=== PATIENT | female | born 1995 | race Hispanic/Latino ===

== ENCOUNTER 2019-02-04 14:13 | Emergency (ER) | payer OTHER, SELFPAY ==
[2019-02-04 14:25] VITALS: BP 129/74; PULSE 71; RESP 12; TEMP 36.7; O2SAT 100; BMI 20.5
--- NOTE | 2019-02-04 14:34 | DI.RAD.S_ITS ---
PROCEDURE: XR CHEST 1V INDICATIONS: chest pain TECHNIQUE: One view of the chest was acquired. COMPARISON: None. FINDINGS: Surgical changes and devices: None. Lungs and pleura: Lungs are clear. No pleural effusions or pneumothorax. Mediastinum: Mediastinal contours appear normal. Heart size is normal. Bones and chest wall: No suspicious bony lesions. Overlying soft tissues appear unremarkable. IMPRESSION: No acute disease Dictated by: Lars Valderrama M.D. on 02/04/2019 at 15:07 Approved by: Lars Valderrama M.D. on 02/04/2019 at 15:14
--- NOTE | 2019-02-04 15:03 | ED.CHESTPAIN ---
HPI - Chest Pain <JACOB Husain-BC - Last Filed: 02/04/19 18:38> General Chief Complaint: Chest Pain Stated Complaint: Chest pain trouble breathing Time Seen by Provider: 02/04/19 14:36 Source: patient Mode of arrival: ambulatory Limitations: no limitations History of Present Illness HPI narrative: The patient is a 24-year-old female nonsmoker presents with epigastric and chest pain for the past 4 days, that has been on and off. She does have slight nausea, denies any fever vomiting diarrhea abdominal pain. She nurses slight shortness of breath, states she has history of bronchitis. She denies any fevers. She denies any recent surgeries. She denies any immobility recently. She states that she tried to follow up with her PCP, and had no availability. She denies any worsening or alleviating factors of the pain. She states that the pain starts in her epigastric area and then radiates that. She has not tried anything for pain. No palpitations. Related Data Home Medications Medication Instructions Recorded Confirmed cholecalciferol (vitamin D3) 5,000 unit PO DAILY 02/04/19 02/04/19 cyanocobalamin (vitamin B-12) 1,000 mcg PO DAILY 02/04/19 02/04/19 [Vitamin B-12] levothyroxine [Synthroid] 50 mcg PO DAILY 02/04/19 02/04/19 norgestimate-ethinyl estradiol 1 tab PO DAILY 02/04/19 02/04/19 [Cwd-Fj-Pmtavezd] Previous Rx's Medication Instructions Recorded omeprazole 40 mg PO DAILY #14 cap 02/04/19 Allergies Allergy/AdvReac Type Severity Reaction Status Date / Time shrimp Allergy Verified 02/04/19 14:31 Review of Systems <JACOB Husain-BC - Last Filed: 02/04/19 18:38> Review of Systems GENERAL: Denies chills, fatigue, malaise, fever, sweats. HEENT: Denies sinus pain, ear pain, sore throat, difficulty swallowing, dizziness. RESPIRATORY: Denies dyspnea, cough, wheezing, hemoptysis, sputum. CARDIOVASCULAR: See HPI GASTROINTESTINAL: See HPI MUSCULOSKELETAL: denies weakness, joint pain, or bony pain SKIN: Denies rash, skin lesions, or other NEUROLOGIC: Denies weakness, headache, numbness, change in speech, confusion, seizures, incoordination. PSYCHIATRIC: No concerning psychosocial issues. 12 point review of systems is negative except for those stated above PFSH <Vivi CombsJACOB-BC - Last Filed: 02/04/19 18:38> Social History Smoking Status: Never smoker Social History Smoking Status: Never smoker Exam <Vivi CombsJACOB-BC - Last Filed: 02/04/19 18:38> Narrative Exam Narrative: GENERAL: This is a well-nourished, well-developed patient, no acute distress HEAD: Atraumatic. Normocephalic. No temporal or scalp tenderness. EYES: Pupils equal round and reactive. Extraocular motions intact. No scleral icterus. No injection or drainage. ENT: Nose without bleeding, purulent drainage or septal hematoma. Throat without erythema, tonsillar hypertrophy or exudate. Uvula midline. Airway patent. NECK: Trachea midline. No JVD or lymphadenopathy. Supple, nontender, no meningeal signs. CARDIOVASCULAR: Regular rate and rhythm without murmurs, gallops, or rubs. RESPIRATORY: Clear to auscultation. Breath sounds equal bilaterally. No wheezes, rales, or rhonchi. No cough. No increased respiratory effort. No accessory muscle use. GASTROINTESTINAL: Abdomen soft, diffusely tender to epigastric area, nontender otherwise, nondistended. No hepato-splenomegaly, or palpable masses. No guarding. Active bowel sounds all 4 quadrants. EXTREMITIES: No clubbing, cyanosis, or edema. No joint tenderness, effusion, or edema noted. BACK: Nontender without deformity or crepitance. No flank tenderness. NEURO: AOx3. SKIN: No rash or erythema. Initial Vital Signs Initial Vital Signs: Vital Signs Temperature 98.0 F 02/04/19 14:25 Pulse Rate 71 02/04/19 14:25 Respiratory Rate 12 02/04/19 14:25 Blood Pressure 129/74 02/04/19 14:25 Pulse Oximetry 100 02/04/19 14:25 <Dari Dao MD - Last Filed: 02/04/19 19:11> Initial Vital Signs Initial Vital Signs: Vital Signs Temperature 98.0 F 02/04/19 14:25 Pulse Rate 71 02/04/19 14:25 Respiratory Rate 12 02/04/19 14:25 Blood Pressure 129/74 02/04/19 14:25 Pulse Oximetry 100 02/04/19 14:25 Course <CAITLIN HusainBC - Last Filed: 02/04/19 18:38> Orders Ordered: ED Orders 02/04/19 14:34 XR chest 1V Stat EKG-12 Lead Stat 02/04/19 14:53 Amylase Stat Complete Blood Count AUTO DIFF Stat Comprehensive Metabolic Panel Stat D Dimer Stat Lipase Stat Partial Thromboplastin Time Stat Prothrombin Time INR Stat Troponin & CK Cardiac Panel Stat 02/04/19 15:05 RT Consult Eval and Treat Now Discontinued Medications Al Hydrox/Mg Hydrox/Simethicone 20 ml/ Lidocaine HCl 15 ml 0 ml PO NOW ONE Stop: 02/04/19 15:42 Last Admin: 02/04/19 15:59 Dose: 35 ml Pantoprazole Sodium (Protonix) 40 mg IV NOW ONE Stop: 02/04/19 15:42 Last Admin: 02/04/19 15:59 Dose: 40 mg Vital Signs - 8 hr 02/04/19 14:25 02/04/19 15:30 02/04/19 16:30 Temperature 98.0 F Pulse Rate 71 59 L 75 Respiratory Rate 12 12 16 Blood Pressure 129/74 Blood Pressure [Right Arm] 115/63 157/104 H Pulse Oximetry 100 100 100 02/04/19 17:30 Temperature Pulse Rate 62 Respiratory Rate 13 Blood Pressure Blood Pressure [Right Arm] 116/74 Pulse Oximetry 100 <Dari Dao MD - Last Filed: 02/04/19 19:11> Orders Ordered: ED Orders 02/04/19 14:34 XR chest 1V Stat EKG-12 Lead Stat 02/04/19 14:53 Amylase Stat Complete Blood Count AUTO DIFF Stat Comprehensive Metabolic Panel Stat D Dimer Stat Lipase Stat Partial Thromboplastin Time Stat Prothrombin Time INR Stat Troponin & CK Cardiac Panel Stat 02/04/19 15:05 RT Consult Eval and Treat Now Discontinued Medications Al Hydrox/Mg Hydrox/Simethicone 20 ml/ Lidocaine HCl 15 ml 0 ml PO NOW ONE Stop: 02/04/19 15:42 Last Admin: 02/04/19 15:59 Dose: 35 ml Pantoprazole Sodium (Protonix) 40 mg IV NOW ONE Stop: 02/04/19 15:42 Last Admin: 02/04/19 15:59 Dose: 40 mg Vital Signs - 8 hr 02/04/19 14:25 02/04/19 15:30 02/04/19 16:30 Temperature 98.0 F Pulse Rate 71 59 L 75 Respiratory Rate 12 12 16 Blood Pressure 129/74 Blood Pressure [Right Arm] 115/63 157/104 H Pulse Oximetry 100 100 100 02/04/19 17:30 Temperature Pulse Rate 62 Respiratory Rate 13 Blood Pressure Blood Pressure [Right Arm] 116/74 Pulse Oximetry 100 MDM - Chest Pain <JACOB Husain- - Last Filed: 02/04/19 18:38> Lab Data Result diagrams: 02/04/19 14:53 02/04/19 14:53 Lab Results 02/04/19 02/04/19 02/04/19 Range/Units 14:53 14:53 14:53 WBC 4.6 (4.5-11.0) X10^3/uL RBC 3.94 L (4.0-5.2) X10^6/uL Hgb 12.2 (12.0-16.0) g/dL Hct 36.6 (36-46) % MCV 93.0 (80-100) fL MCH 31.1 (26-34) PG MCHC 33.4 (30-36) % RDW 12.5 (11.6-14.8) % Plt Count 225 (150-400) X10^3/uL Neut % (Auto) 47.7 L (50-75) % Lymph % (Auto) 42.7 H (25-40) % [place] % (Auto) 7.5 (3-14) % Eos % (Auto) 1.1 L (2-4) % Baso % (Auto) 1.0 (0-2) % Neut # (Auto) 2200 (7874-8876) /uL Lymph # (Auto) 2000 (3715-8015) /uL [place] # (Auto) 300 (0-900) /uL Eos # (Auto) 100 (0-450) /uL Baso # (Auto) 0 (0-100) /uL PT 11.0 (10.1-12.7) SECONDS INR 1.0 (0.9-1.3) APTT 33 (26.4-36.2) SECONDS D-Dimer (<230) ng/mL Sodium 140 (137-145) mmol/L Potassium 3.8 (3.4-5.1) mmol/L Chloride 105 (98-107) mmol/L Carbon Dioxide 27 (22-32) mmol/L BUN 9 (7-17) mg/dL Creatinine 0.60 (0.52-1.04) mg/dL Estimated GFR > 60.0 (>60) mL/min BUN/Creatinine Ratio 15.0 (6-22) Glucose 88 (70-100) mg/dL Calcium 8.9 (8.4-10.2) mg/dL Total Bilirubin 0.1 L (0.2-1.3) mg/dL AST 37 H (14-36) IU/L ALT 42 (9-52) IU/L Alkaline Phosphatase 57 (38-126) U/L Total Creatine Kinase 549 H (30-135) U/L CK-MB (CK-2) 1.00 (<2.37) ng/mL CK-MB (CK-2) Rel Index 0.2 L (1.5-5.0) % Troponin I < 0.012 (0.01-0.034) ng/mL Total Protein 6.9 (6.3-8.2) g/dL Albumin 3.8 (3.5-5.0) g/dL Globulin 3.1 (1.7-4.1) g/dL Albumin/Globulin Ratio 1.2 (1.0-2.8) Amylase (30-110) U/L Lipase 98 (23-300) U/L 02/04/19 02/04/19 Range/Units 14:53 14:53 WBC (4.5-11.0) X10^3/uL RBC (4.0-5.2) X10^6/uL Hgb (12.0-16.0) g/dL Hct (36-46) % MCV (80-100) fL MCH (26-34) PG MCHC (30-36) % RDW (11.6-14.8) % Plt Count (150-400) X10^3/uL Neut % (Auto) (50-75) % Lymph % (Auto) (25-40) % [place] % (Auto) (3-14) % Eos % (Auto) (2-4) % Baso % (Auto) (0-2) % Neut # (Auto) (9805-0354) /uL Lymph # (Auto) (3266-2219) /uL [place] # (Auto) (0-900) /uL Eos # (Auto) (0-450) /uL Baso # (Auto) (0-100) /uL PT (10.1-12.7) SECONDS INR (0.9-1.3) APTT (26.4-36.2) SECONDS D-Dimer < 200 (<230) ng/mL Sodium (137-145) mmol/L Potassium (3.4-5.1) mmol/L Chloride (98-107) mmol/L Carbon Dioxide (22-32) mmol/L BUN (7-17) mg/dL Creatinine (0.52-1.04) mg/dL Estimated GFR (>60) mL/min BUN/Creatinine Ratio (6-22) Glucose (70-100) mg/dL Calcium (8.4-10.2) mg/dL Total Bilirubin (0.2-1.3) mg/dL AST (14-36) IU/L ALT (9-52) IU/L Alkaline Phosphatase (38-126) U/L Total Creatine Kinase (30-135) U/L CK-MB (CK-2) (<2.37) ng/mL CK-MB (CK-2) Rel Index (1.5-5.0) % Troponin I (0.01-0.034) ng/mL Total Protein (6.3-8.2) g/dL Albumin (3.5-5.0) g/dL Globulin (1.7-4.1) g/dL Albumin/Globulin Ratio (1.0-2.8) Amylase 102 (30-110) U/L Lipase (23-300) U/L Imaging Data Chest x-ray: Radiologist's impression: [address] [address] XRay Report Signed Patient: Kira Reyes#: [id number] : 1995Acct:[id number] Age/Sex: 24 / FDate of Service: 02/04/19 Loc: ED Accession Number: [id number] Procedure: XR chest 1V Ordering Provider: Dari Dao MD PROCEDURE: XR CHEST 1V INDICATIONS: chest pain TECHNIQUE: One view of the chest was acquired. COMPARISON: None. FINDINGS: Surgical changes and devices: None. Lungs and pleura: Lungs are clear. No pleural effusions or pneumothorax. Mediastinum: Mediastinal contours appear normal. Heart size is normal. Bones and chest wall: No suspicious bony lesions. Overlying soft tissues appear unremarkable. IMPRESSION: No acute disease Dictated by: Lars Valderrama M.D. on 02/04/2019 at 15:07 Approved by: Lars Valderrama M.D. on 02/04/2019 at 15:14 [facility] Narrative Medical decision making narrative: The patient is a 24-year-old female presents with a chief complaint of chest pain for the past several days. She has a negative troponin, negative D-dimer, overall normal lab work. She responded well to a GI cocktail and Protonix. Thus I did discuss at length with her decreasing acid in her diet, and gave her a prescription for omeprazole. I discussed at length follow up with primary care provider as well as coming back to the emergency department for any acute concerns such as passing out etc. She had no questions or concerns upon discharge. <Dari Dao MD - Last Filed: 02/04/19 19:11> Lab Data Lab Results 02/04/19 02/04/19 02/04/19 Range/Units 14:53 14:53 14:53 WBC 4.6 (4.5-11.0) X10^3/uL RBC 3.94 L (4.0-5.2) X10^6/uL Hgb 12.2 (12.0-16.0) g/dL Hct 36.6 (36-46) % MCV 93.0 (80-100) fL MCH 31.1 (26-34) PG MCHC 33.4 (30-36) % RDW 12.5 (11.6-14.8) % Plt Count 225 (150-400) X10^3/uL Neut % (Auto) 47.7 L (50-75) % Lymph % (Auto) 42.7 H (25-40) % [place] % (Auto) 7.5 (3-14) % Eos % (Auto) 1.1 L (2-4) % Baso % (Auto) 1.0 (0-2) % Neut # (Auto) 2200 (1084-5584) /uL Lymph # (Auto) 2000 (3158-3955) /uL [place] # (Auto) 300 (0-900) /uL Eos # (Auto) 100 (0-450) /uL Baso # (Auto) 0 (0-100) /uL PT 11.0 (10.1-12.7) SECONDS INR 1.0 (0.9-1.3) APTT 33 (26.4-36.2) SECONDS D-Dimer (<230) ng/mL Sodium 140 (137-145) mmol/L Potassium 3.8 (3.4-5.1) mmol/L Chloride 105 (98-107) mmol/L Carbon Dioxide 27 (22-32) mmol/L BUN 9 (7-17) mg/dL Creatinine 0.60 (0.52-1.04) mg/dL Estimated GFR > 60.0 (>60) mL/min BUN/Creatinine Ratio 15.0 (6-22) Glucose 88 (70-100) mg/dL Calcium 8.9 (8.4-10.2) mg/dL Total Bilirubin 0.1 L (0.2-1.3) mg/dL AST 37 H (14-36) IU/L ALT 42 (9-52) IU/L Alkaline Phosphatase 57 (38-126) U/L Total Creatine Kinase 549 H (30-135) U/L CK-MB (CK-2) 1.00 (<2.37) ng/mL CK-MB (CK-2) Rel Index 0.2 L (1.5-5.0) % Troponin I < 0.012 (0.01-0.034) ng/mL Total Protein 6.9 (6.3-8.2) g/dL Albumin 3.8 (3.5-5.0) g/dL Globulin 3.1 (1.7-4.1) g/dL Albumin/Globulin Ratio 1.2 (1.0-2.8) Amylase (30-110) U/L Lipase 98 (23-300) U/L 02/04/19 02/04/19 Range/Units 14:53 14:53 WBC (4.5-11.0) X10^3/uL RBC (4.0-5.2) X10^6/uL Hgb (12.0-16.0) g/dL Hct (36-46) % MCV (80-100) fL MCH (26-34) PG MCHC (30-36) % RDW (11.6-14.8) % Plt Count (150-400) X10^3/uL Neut % (Auto) (50-75) % Lymph % (Auto) (25-40) % [place] % (Auto) (3-14) % Eos % (Auto) (2-4) % Baso % (Auto) (0-2) % Neut # (Auto) (2687-6443) /uL Lymph # (Auto) (2653-5262) /uL [place] # (Auto) (0-900) /uL Eos # (Auto) (0-450) /uL Baso # (Auto) (0-100) /uL PT (10.1-12.7) SECONDS INR (0.9-1.3) APTT (26.4-36.2) SECONDS D-Dimer < 200 (<230) ng/mL Sodium (137-145) mmol/L Potassium (3.4-5.1) mmol/L Chloride (98-107) mmol/L Carbon Dioxide (22-32) mmol/L BUN (7-17) mg/dL Creatinine (0.52-1.04) mg/dL Estimated GFR (>60) mL/min BUN/Creatinine Ratio (6-22) Glucose (70-100) mg/dL Calcium (8.4-10.2) mg/dL Total Bilirubin (0.2-1.3) mg/dL AST (14-36) IU/L ALT (9-52) IU/L Alkaline Phosphatase (38-126) U/L Total Creatine Kinase (30-135) U/L CK-MB (CK-2) (<2.37) ng/mL CK-MB (CK-2) Rel Index (1.5-5.0) % Troponin I (0.01-0.034) ng/mL Total Protein (6.3-8.2) g/dL Albumin (3.5-5.0) g/dL Globulin (1.7-4.1) g/dL Albumin/Globulin Ratio (1.0-2.8) Amylase 102 (30-110) U/L Lipase (23-300) U/L Discharge Plan Departure Patient Disposition: Home Clinical Impression: Atypical chest pain Gastroesophageal reflux disease Qualifiers: Esophagitis presence: esophagitis presence not specified Qualified Code(s): K21.9 - Gastro-esophageal reflux disease without esophagitis Discharge Date/Time: 02/04/19 17:57 Interventions: ED Discharge Assessment Last Done: 02/04/19 17:57 Instructions: DI for Gastroesophageal Reflux Disease (GERD), DI for Atypical Chest Pain, GERD Diet Activity Restrictions/Additional Instructions: Your x-ray and lab work came back well today. However you responded well to medications to reduce acid in her stomach. Please follow the dietary changes that we discussed. I have given you a prescription for omeprazole. Please follow up with primary care Provider in the next few days. Please come back to the emergency department for any acute concerns such as passing out or confusion. Prescriptions: New omeprazole 40 mg capsule,delayed release(DR/EC) 40 mg PO DAILY Qty: 14 RF: 0 No Action cyanocobalamin (vitamin B-12) [Vitamin B-12] 1,000 mcg tablet 1,000 mcg PO DAILY RF: 0 levothyroxine [Synthroid] 50 mcg tablet 50 mcg PO DAILY RF: 0 cholecalciferol (vitamin D3) 5,000 unit capsule 5,000 unit PO DAILY RF: 0 norgestimate-ethinyl estradiol [[id number]] 0.18/0.215/0.25 mg-25 mcg tablet 1 tab PO DAILY RF: 0
[2019-02-04 15:06] LABS: Add Manual Diff / Slide Review NO; Basophils Absolute Auto 0 /uL (0-100); Eosinophils Absolute Auto 100 /uL (0-450); Eosinophils Percent Auto 1.1 % (2-4); Hematocrit 36.6 % (36-46); Hemoglobin 12.2 g/dL (12.0-16.0); Lymphocytes Absolute Auto 2000 /uL (1100-4500); Lymphocytes Percent Auto 42.7 % (25-40); Mean Corpuscular HGB Conc 33.4 % (30-36); Mean Corpuscular Hemoglobin 31.1 PG (26-34); Monocytes Absolute Auto 300 /uL (0-900); Monocytes Percent Auto 7.5 % (3-14); Neutrophils Absolute Auto 2200 /uL (1500-7000); Neutrophils Percent Auto 47.7 % (50-75); Platelet Count 225 X10^3/uL (150-400); Red Blood Cell Count 3.94 X10^6/uL (4.0-5.2); Red Cell Distribution Width 12.5 % (11.6-14.8); White Blood Cell Count 4.6 X10^3/uL (4.5-11.0)
[2019-02-04 15:21] LABS: PTT Partial Thromboplastin Tim 33 SECONDS (26.4-36.2)
[2019-02-04 15:23] LABS: Alanine Aminotransferase 42 IU/L (9-52); Albumin 3.8 g/dL (3.5-5.0); Albumin Globulin Ratio 1.2 (1.0-2.8); Alkaline Phosphatase 57 U/L (38-126); Amylase 102 U/L (30-110); Aspartate Aminotransferase 37 IU/L (14-36); Bilirubin Total 0.1 mg/dL (0.2-1.3); Blood Urea Nitrogen 9 mg/dL (7-17); Calcium 8.9 mg/dL (8.4-10.2); Carbon Dioxide 27 mmol/L (22-32); Chloride 105 mmol/L (98-107); Creatine Kinase 549 U/L (30-135); Estimated Glomerular Filt Rate > 60.0 mL/min (>60); Globulin 3.1 g/dL (1.7-4.1); Glucose 88 mg/dL (70-100); HEMOLYSIS < 15 (0-50); Lipase 98 U/L (23-300); Potassium 3.8 mmol/L (3.4-5.1); Sodium 140 mmol/L (137-145); Total Protein 6.9 g/dL (6.3-8.2)
[2019-02-04 15:30] VITALS: BP 115/63; PULSE 59; RESP 12; O2SAT 100
[2019-02-04 15:33] LABS: Troponin I < 0.012 ng/mL (0.01-0.034)
[2019-02-04 15:39] LABS: CKMB % Relative Index 0.2 % (1.5-5.0)
[2019-02-04] MEDS: MAG HYDROX/ALUMINUM/SIMETH SUS 20 ML, LIDOCAINE VISCOUS 2% 15 ML PO (15:59)
[2019-02-04] MEDS: PANTOPRAZOLE 40 MG VIAL IV (15:59)
[2019-02-04 16:10] LABS: D Dimer < 200 ng/mL (<230)
[2019-02-04 16:30] VITALS: BP 157/104; PULSE 75; RESP 16; O2SAT 100
[2019-02-04 17:30] VITALS: BP 116/74; PULSE 62; RESP 13; O2SAT 100
== END 2019-02-04 17:57 | disposition home or self-care (01) ==
PROVIDERS: Emergency Medicine; Emergency Provider Nurse Practitioner Family
DX: R07.89 Other chest pain (principal); K21.9 Gastro-esophageal reflux disease without esophagitis; R06.00 Dyspnea, unspecified
CPT/HCPCS: 36415; 36591; 71045; 80053; 82150; 82550; 82553; 83690; 84484; 85025; 85379; 85610; 85730; 93005; 93010; 96374; 99283; 99285; C9113